=== PATIENT | female | born 1965 | race Caucasian/White ===

== ENCOUNTER 2022-06-27 15:34 | Emergency (ER) | payer BC ==
[2022-06-27] MEDS ORDERED: Sulfamethoxazole/Trimethoprim 800-160 MG Tab PO ONE (16:26)
== END 2022-06-27 16:39 | disposition home or self-care (01) ==
LOC: MW.ED 15:34
DX: L73.9 Follicular disorder, unspecified (principal); Z88.5 Allergy status to narcotic agent; Z79.899 Other long term (current) drug therapy
CPT/HCPCS: 99282; A9270; 99283